=== PATIENT | male | born 1960 | race African-American/Black ===

== ENCOUNTER 2016-10-20 22:26 | Emergency (ER) | payer BC ==
[~2016-10-20] VITALS: Ht 188 cm; Wt 117.9 kg
[2016-10-20] MEDS ORDERED: ELIQUIS5 MG OR (22:54)
[2016-10-20] MEDS ORDERED: PACERONE200 MG OR (22:56)
[2016-10-20] MEDS ORDERED: LEVO0.117 PO (22:56)
[2016-10-20] MEDS ORDERED: DIGOX125 MCG PO (22:56)
[2016-10-21 00:18] LABS: PLATELET COUNT 206 K/uL (142-355)
[2016-10-21 00:43] LABS: POTASSIUM 3.7 mmol/L (3.6-5.2); SODIUM 136 mmol/L (136-145)
[2016-10-21 02:39] VITALS: BP 167/102; TEMP 97.8
== END 2016-10-21 02:50 | disposition home or self-care (01) ==
LOC: ED 22:26
PROVIDERS: Specialist
DX: I10 Essential (primary) hypertension (principal); I48.91 Unspecified atrial fibrillation
CPT/HCPCS: 80048; 82550; 82553; 83735; 83880; 84484; 85027; 93005; 99284

== ENCOUNTER 2016-11-25 07:20 | Outpatient (CLI) | payer BC ==
[~2016-11-25 07:20] MED LIST: DIGOX125 MCG PO; ELIQUIS5 MG OR; LEVO0.117 PO; PACERONE200 MG OR
== END 2016-11-25 19:20 | disposition home or self-care (01) ==
LOC: NM 07:20
DX: I48.1 Persistent atrial fibrillation (principal); R94.31 Abnormal electrocardiogram [ECG] [EKG]
CPT/HCPCS: A9500

== ENCOUNTER 2018-05-17 15:09 | Outpatient (CLI) | payer BC | END 2018-05-17 23:59 | disposition home or self-care (01) | LOC: LABW 15:09 | DX: J90 Pleural effusion, not elsewhere classified (principal) | CPT/HCPCS: 36415; 83880 ==